=== PATIENT | female | born 2000 | race Hispanic/Latino ===

== ENCOUNTER 2022-01-22 16:42 | Day surgery (SDC) | payer MEDICAID, OTHER ==
[~2022-01-22 16:42] MED LIST: Iopamidol 300 61% 100 ML VIAL FS ONE
[2022-01-22] MEDS ORDERED: Doxycycline 100 MG in Sodium Chloride 0.9% 100 ML IVPB SCH (18:00)
[2022-01-22] MEDS ORDERED: Bupivacaine PF 0.5% 30 ML VIAL ONE (18:22)
[2022-01-22] MEDS ORDERED: EPINEPHrine 1 MG/ML AMP ONE (18:22)
[2022-01-22] MEDS ORDERED: Fentanyl 100 MCG/2 ML VIAL ONE ×2 (18:33→20:41)
[2022-01-22] MEDS ORDERED: Rocuronium Bromide 10 MG/ML (10ML VIAL) ONE (18:33)
[2022-01-22] MEDS ORDERED: Lidocaine 1% PF 5 ML VIAL ONE (18:33)
[2022-01-22] MEDS ORDERED: Succinylcholine 200 MG/10 ml SYRINGE FS ONE (18:33)
[2022-01-22] MEDS ORDERED: Dexamethasone 20 MG/5 ML VIAL ONE (18:33)
[2022-01-22] MEDS ORDERED: PROPOFOL 20 ML ONE (18:33)
[2022-01-22] MEDS ORDERED: Ondansetron PF 4 MG/2 ML Vial ONE (18:33)
[2022-01-22 18:42] LABS: SARS-CoV-2 NAA Rapid Test Not Detected (NotDetected)
[2022-01-22] MEDS ORDERED: PHENYLEPHRINE-NS 100 MCG/ML 10 ML SYRINGE ONE (19:43)
[2022-01-22] MEDS ORDERED: Ketorolac Tromethamine 30 MG/ML VIAL ONE (21:02)
[2022-01-22] MEDS ORDERED: Meperidine HCl/PF 25 MG/ML VIAL ONE (21:02)
== END 2022-01-22 19:08 | disposition admitted as inpatient to this hospital (09) ==
LOC: CSHERS 16:42 → CSHSDC 16:42 → CSHERS 19:08
PROVIDERS: ATTEND Emergency Medicine
DX: O36.4XX0 Maternal care for intrauterine death, not applicable or unspecified (principal); Z3A.11 11 weeks gestation of pregnancy; Z20.822 Contact with and (suspected) exposure to COVID-19
CPT/HCPCS: 74177; 88305; 88331; J0171; J1100; J1885; J2175; J2405; J2704; J3010; J3490; Q9967; S0020; U0002

== ENCOUNTER 2023-03-30 23:34 | Day surgery (SDC) | payer OTHER ==
[2023-03-30 23:58] VITALS: BMI 31.7
[2023-03-31] MEDS ORDERED: hydrALAZINE 20 MG/ML VIAL SLOW IVP PRN (01:03)
== END 2023-03-31 03:55 | disposition home or self-care (01) ==
LOC: CSHLD/OP 23:34
PROVIDERS: ATTEND Family Medicine
DX: O9A.213 Injury, poisoning and certain other consequences of external causes complicating pregnancy, third trimester (principal); Z3A.33 33 weeks gestation of pregnancy; Z90.49 Acquired absence of other specified parts of digestive tract; W19.XXXA Unspecified fall, initial encounter
CPT/HCPCS: 76815; 99282

== ENCOUNTER 2023-05-04 12:46 | Day surgery (SDC) | payer OTHER ==
[2023-05-04 13:16] VITALS: BMI 32.1
[2023-05-04] MEDS ORDERED: hydrALAZINE 20 MG/ML VIAL SLOW IVP PRN (13:54)
[2023-05-04 14:33] LABS: Fetal Membranes Rupture No Membranes Rupture (No Rupture)
== END 2023-05-04 14:47 | disposition home or self-care (01) ==
LOC: CSHLD/OP 12:46
PROVIDERS: ATTEND Family Medicine
DX: O47.1 False labor at or after 37 completed weeks of gestation (principal); Z3A.39 39 weeks gestation of pregnancy; Z90.49 Acquired absence of other specified parts of digestive tract
CPT/HCPCS: 84112; 99283